=== PATIENT | female | born 1985 | race American Indian/Alaskan Native ===

== ENCOUNTER 2021-09-26 12:36 | Emergency (ER) | payer SELFPAY ==
[2021-09-26 13:18] VITALS: BP 173/93
--- NOTE | 2021-09-26 14:05 | Emergency Department Report ---
ED Back Pain/Injury HPI - General Chief Complaint: Back Pain/Injury Stated Complaint: SEVERE BACK PAIN Time Seen by Provider: 09/26/21 13:44 Source: patient Mode of arrival: Ambulatory Limitations: No Limitations - History of Present Illness Initial Comments: Patient is a 36-year-old female presents emergency room with complaints of left lower back pain that began a week and a half ago. She denies any fall or injury. She denies any radiation of the pain. She states her pain is worse with certain movements. 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 She denies any fever, nausea, vomiting, diarrhea, urinary symptoms, abdominal pain, chest pain, shortness of breath. She denies any numbness, weakness, bowel or bladder incontinence. She denies any steroid use, history of cancer or IV drug use. Past medical history of hypertension and states that she supposed to be taking amlodipine 5 mg daily but states that she has not been on her medications in June as she reports that she does not have insurance and therefore does not have a primary care doctor. No allergies to medications. - Related Data Previous Rx's Medication Instructions Recorded Last Taken Type Naproxen 375 mg PO BID PRN #14 tablet 09/26/21 Unknown Rx amLODIPine 5 mg PO DAILY #30 tab 09/26/21 Unknown Rx methOCARBAMOL [Robaxin TAB] 500 mg PO BID PRN #14 tab 09/26/21 Unknown Rx Allergies Allergy/AdvReac Type Severity Reaction Status Date / Time No Known Allergies Allergy Verified 09/26/21 13:18 ED Review of Systems ROS: Stated complaint: SEVERE BACK PAIN Other details as noted in HPI Comment: All other systems reviewed and negative ED Past Medical Hx - Medications Home Medications: Home Medications Medication Instructions Recorded Confirmed Last Taken Type Naproxen 375 mg PO BID PRN #14 tablet 09/26/21 Unknown Rx amLODIPine 5 mg PO DAILY #30 tab 09/26/21 Unknown Rx methOCARBAMOL [Robaxin TAB] 500 mg PO BID PRN #14 tab 09/26/21 Unknown Rx ED Physical Exam - General Limitations: No Limitations General appearance: alert, in no apparent distress - Head Head exam: Present: atraumatic, normocephalic - Eye Eye exam: Present: normal appearance - ENT ENT exam: Present: mucous membranes moist - Neck Neck exam: Present: normal inspection, full ROM. Absent: tenderness, meningismus - Respiratory Respiratory exam: Present: normal lung sounds bilaterally. Absent: respiratory distress, wheezes, rales, rhonchi, stridor, chest wall tenderness, accessory muscle use, decreased breath sounds, prolonged expiratory - Cardiovascular Cardiovascular Exam: Present: regular rate, normal rhythm, normal heart sounds. Absent: systolic murmur, diastolic murmur, rubs, gallop - GI/Abdominal GI/Abdominal exam: Present: soft. Absent: distended, tenderness, guarding, rebound, rigid - Back Exam Back exam: Present: normal inspection, full ROM, paraspinal tenderness (left sided paraspinal lumbar ttp, no midline c-spine, t-spine or l-spine ttp, no step offs, no deformities). Absent: vertebral tenderness - Neurological Exam Neurological exam: Present: alert, oriented X3, CN II-XII intact, normal gait. Absent: motor sensory deficit - Psychiatric Psychiatric exam: Present: normal affect, normal mood - Skin Skin exam: Present: warm, dry, intact ED Course Vital Signs 09/26/21 13:14 Temperature 98.7 F Pulse Rate 66 Respiratory 18 Rate Blood Pressure 173/93 [Left] O2 Sat by Pulse 100 Oximetry ED Medical Decision Making - Medical Decision Making Patient is a 36-year-old female presents emergency room with complaints of left lower back pain that began a week and a half ago. She denies any fall or injury. She denies any radiation of the pain. She states her pain is worse with certain movements. 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 She denies any fever, nausea, vomiting, diarrhea, urinary symptoms, abdominal pain, chest pain, shortness of breath. She denies any numbness, weakness, bowel or bladder incontinence. She denies any steroid use, history of cancer or IV drug use. Past medical history of hypertension and states that she supposed to be taking amlodipine 5 mg daily but states that she has not been on her medications in June as she reports that she does not have insurance and therefore does not have a primary care doctor. No allergies to medications. Vitals with elevated blood pressure, patient has chronic hypertension and is off her medication, will refill patient's medication, discussed lifestyle modifications and following up with primary care doctor. On exam: left sided paraspinal lumbar ttp, no midline c- spine, t-spine or l-spine ttp, no step offs, no deformities, no focal neuro deficits, ambulatory with difficulty. UA is within normal limits. Urine is negative. Patient has no red flag warning signs of back pain, no trauma, no unexplained weight loss, no neuro deficits, age is not greater than 50, no fever, no IV drug use, no steroid use, no history of cancer. Patient given prescription for medications. Advised patient Please take medication as prescribed. May use ice pack, heating pad, rest, epsom salt bath. Follow-up with a primary care doctor. Follow-up with a health and nutrition specialist. Return to emergency room for any new or worsening symptoms. Critical care attestation.: If time is entered above; I have spent that time in minutes in the direct care of this critically ill patient, excluding procedure time. ED Disposition Clinical Impression: Elevated blood pressure reading, Medication refill Low back pain Qualifiers: Chronicity: acute Back pain laterality: left Sciatica presence: without sciatica Qualified Code(s): M54.50 - Low back pain, unspecified Disposition: 01 HOME / SELF CARE / HOMELESS Is pt being admited?: No Does the pt Need Aspirin: No Condition: Stable Instructions: Acute Back Pain, Adult, Low-Sodium Eating Plan Additional Instructions: Please take medication as prescribed. May use ice pack, heating pad, rest, epsom salt bath. Follow-up with a primary care doctor. Follow-up with a health and nutrition specialist. Return to emergency room for any new or worsening symptoms. Prescriptions: amLODIPine 5 mg PO DAILY #30 tab Naproxen 375 mg PO BID PRN #14 tablet PRN Reason: pain methOCARBAMOL [Robaxin TAB] 500 mg PO BID PRN #14 tab PRN Reason: muscle spasm/pain Referrals: BONI CORRAL MD [Staff Physician] - 3-5 Days [facility] [Provider Group] - 3-5 Days [facility] [Outside] - 3-5 Days [facility], [LAB/CONTRACT] - 3-5 Days [facility] [Outside] - 3-5 Days AMANDA PERKINS II, MD [Staff Physician] - 3-5 Days (health and nutrition specialist) Time of Disposition: 15:04 Print Language: WELSH
[2021-09-26 14:27] LABS: HCG Qualitative,Urine Negative (Negative)
[2021-09-26 14:31] LABS: Bilirubin,Urine NEG (Negative); Blood,Urine SM (Negative); Color,Urine Yellow (Yellow); Mucus,Urine FEW /HPF; Protein,Urine <15 mg/dL mg/dL (Negative); Urobilinogen,Urine < 2.0 mg/dL (<2.0); WBC,Urine < 1.0 /HPF (0.0-6.0)
== END 2021-09-26 15:31 | disposition home or self-care (01) ==
LOC: ED 12:36
DX: M54.50 Low back pain, unspecified (principal); R03.0 Elevated blood-pressure reading, without diagnosis of hypertension; Z76.0 Encounter for issue of repeat prescription
CPT/HCPCS: 81001; 81025; 99283